=== PATIENT | female | born 1980 | race Asian ===

== ENCOUNTER 2021-04-09 10:07 | Emergency (ER) | payer OTHER ==
[~2021-04-09] VITALS: Ht 152.4 cm; Wt 47.7 kg
[2021-04-09 12:58] VITALS: BP 148/80
== END 2021-04-09 13:01 | disposition home or self-care (01) ==
LOC: M ED 10:07
DX: G56.03 Carpal tunnel syndrome, bilateral upper limbs (principal); Z88.0 Allergy status to penicillin